=== PATIENT | female | born 1960 | race Caucasian/White ===

== ENCOUNTER 2018-07-20 18:14 | Inpatient (IN) | payer OTHER, MEDICAID ==
[2018-07-20] MEDS ORDERED: Albuterol Nebulizer 2.5mg/3mL HHN ONE (19:26)
[2018-07-20] MEDS ORDERED: Albuterol Nebulizer 2.5mg/3mL HHN STA (19:30)
[2018-07-20] MEDS ORDERED: Lactated Ringer 1,000 ML IV ONE ×2 (19:31→21:10)
[2018-07-20 20:04] LABS: % BASOPHILS 0.1 % (0.0-2.0); % EOSINOPHILS 0.1 % (0.0-5.0); % LYMPHOCYTES 11.4 % (20.0-50.0); % MONOCYTES 1.6 % (2.0-10.0); % NEUTROPHILS 86.8 % (40.0-80.0); HEMATOCRIT 40.6 % (41.0-60); HEMOGLOBIN 13.4 gm/dL (12-16); LYMPHOCYTE ABSOLUTE 1.6 Th/cmm (1.5-3.0); MEAN CELL VOLUME 97.3 fl (81-100); MEAN CORPUSCULAR HEMOGLOBIN 32.1 pg (27.0-31.0); MEAN PLATELET VOLUME 8.6 fl; MONOCYTE ABSOLUTE 0.2 Th/cmm (0.3-1.0); NEUTROPHILE ABSOLUTE 12.2 Th/cmm (1.8-8.0); PLATELET COUNT 161 Th/cmm (150-400); RED BLOOD COUNT 4.17 Mil/cmm (3.80-5.10); RED CELL DISTRIBUTION WIDTH 15.2 % (11.5-20.0)
[2018-07-20 20:20] LABS: ALB/GLOB RATIO 0.8 (1.0-1.8); ALBUMIN 3.2 gm/dL (3.7-5.3); ALKALINE PHOSPHATASE 69 U/L (34-104); ANION GAP 11.3 (7.0-16.0); BILIRUBIN,TOTAL 0.4 mg/dL (0.3-1.0); BUN - UREA NITROGEN 19 mg/dL (7-25); CALCIUM SERUM 9.1 mg/dL (8.6-10.3); CARBON DIOXIDE 28.4 mEq/L (21.0-31.0); CHLORIDE 99 mEq/L (98-107); GFR AFRICAN-AMERICAN > 60.0 ml/min (>90); GFR NON AFRICAN-AMERICAN > 60.0 ml/min; GLUCOSE 134 mg/dL (70-105); MAGNESIUM 2.1 mg/dL (1.9-2.7); PHOSPHOROUS 3.4 mg/dL (2.5-5.0); POTASSIUM SERUM 3.7 mEq/L (3.5-5.1); SGOT 20 U/L (13-39); SGPT/ALT 16 U/L (7-52); SODIUM SERUM 135 mEq/L (136-145); TOTAL PROTEIN,SERUM 7.3 gm/dL (6.0-8.3)
[2018-07-20] MEDS ORDERED: Piperacillin Sodium/Tazobact 3.375 gm Vial IV ONE (20:51)
--- NOTE | 2018-07-20 21:31 | ED Physician Chart ---
ED Chief Complaint/HPI - Patient Information Date Seen:: 07/20/18 Time Seen:: 18:53 Chief Complaint:: sob and congestion History of Present Illness:: sob and congestion in a patient with a h/o pneumonia and sepsis. Doesn't wear oxygen at the facility that she came from. Allergies:: Allergies Allergy/AdvReac Type Severity Reaction Status Date / Time erythromycin base Allergy Verified 07/20/18 18:52 Vitals:: Vital Signs - 8 hr 07/20/18 07/20/18 07/20/18 18:53 19:27 21:20 Temp 97.3 F HR 72 85 RR 16 24 23 BP 89/45 O2 Sat % 94 88 94 07/20/18 21:23 Temp HR RR BP O2 Sat % 99 Historian:: EMS, Medical Records Review:: Nurse's Note Reviewed, Transfer documents Reviewed ED Review of Systems - Review of Systems General/Constitutional: No fever, No chills, No weight loss, No weakness, No diaphoresis, No edema, No loss of appetite Skin: No skin lesions, No rash, No bruising Head: No headache, No light-headedness Eyes: No loss of vision, No pain, No diplopia ENT: No earache, No nasal drainage, No sore throat, No tinnitus Neck: No neck pain, No swelling, No thyromegaly, No stiffness, No mass noted Cardio Vascular: No chest pain, No palpitations, No PND, No orthopnea, No edema Pulmonary: SOB, No cough, No sputum, Other (congestion) GI: No nausea, No vomiting, No diarrhea, No pain, No melena, No hematochezia, No constipation, No hematemesis G/U: No dysuria, No frequency, No hematuria Musculoskeletal: No bone or joint pain, No back pain, No muscle pain Endocrine: No polyuria, No polydipsia Psychiatric: Prior psych history Hematopoietic: No bruising, No lymphadenopathy Allergic/Immuno: No urticaria, No angioedema Neurological: No syncope, No focal symptoms, No weakness, No paresthesia, No headache, No seizure, No dizziness, No confusion, No vertigo ED Past Medical History - Past Medical History Obtainable: No Past Medical History: Dementia, Other (sepsis; Down's syndrome; blind eyes) Surgical History: Pacemaker Psychiatricy History: Schizophrenia, Dementia Family Medical History - Family Member Mother History Unknown: Yes ED Physical Exam - Physical Examination General/Constitutional: Awake Other Gen/Cons comments:: chronically ill appearing. Down's syndrome facies. trying to pull face mask off of her face. Head: Atraumatic Eyes: Lids, conjuctiva normal, PERRL Other Skin comments:: appears mottled on the BLE. Duct Maker states that that is her normal skin color. ENMT: External ears, nose nl, TM canals nl Other ENMT comments:: low set ears. Neck: Nontender, Full ROM w/o pain, No JVD, No nuchal rigidity, No bruit, No mass, No stridor Other Respiratory comments:: decreased breath sounds at bases. Cardio Vascular: RRR Other Cardio Vascular comments:: II/ systolic murmur. GI: No tenderness/rebounding/guarding, No organomegaly, No hernia, Normal BS's, Nondistended, No mass/bruits, No McBurney tenderness : No CVA tenderness Extremities: No tenderness or effusion, Full ROM, normal strength in all extremities, No edema, Normal digits & nails Other Extremities comments:: appears to have mottled skin. hands are cold and a red/lavendar in color. Other Neuro/Psych comments:: slightly somnolent. Misc: Normal back, No paraspinal tenderness ED Labs/Radiology/EKG Results - Lab Results Results: Laboratory Tests 07/20/18 07/20/18 07/20/18 19:50 19:50 19:50 WBC 14.0 H RBC 4.17 Hgb 13.4 Hct 40.6 L MCV 97.3 MCH 32.1 H MCHC Differential 33.0 RDW 15.2 Plt Count 161 MPV 8.6 Neutrophils % 86.8 H Lymphocytes % 11.4 L Monocytes % 1.6 L Eosinophils % 0.1 Basophils % 0.1 Sodium 135 L Potassium 3.7 Chloride 99 Carbon Dioxide 28.4 Anion Gap 11.3 BUN 19 Creatinine 1.0 Est GFR ( Amer) > 60.0 Est GFR (Non-Af Amer) > 60.0 BUN/Creatinine Ratio 19.0 Glucose 134 H Whole Bld Lactic Acid Calcium 9.1 Phosphorus Magnesium Total Bilirubin 0.4 AST 20 ALT 16 Alkaline Phosphatase 69 Troponin I 0.01 Total Protein 7.3 Albumin 3.2 L Globulin 4.1 Albumin/Globulin Ratio 0.8 L 07/20/18 07/20/18 19:50 19:50 WBC RBC Hgb Hct MCV MCH MCHC Differential RDW Plt Count MPV Neutrophils % Lymphocytes % Monocytes % Eosinophils % Basophils % Sodium Potassium Chloride Carbon Dioxide Anion Gap BUN Creatinine Est GFR ( Amer) Est GFR (Non-Af Amer) BUN/Creatinine Ratio Glucose Whole Bld Lactic Acid 2.42 H* Calcium Phosphorus 3.4 Magnesium 2.1 Total Bilirubin AST ALT Alkaline Phosphatase Troponin I Total Protein Albumin Globulin Albumin/Globulin Ratio ED Assessment - Assessment General Assessment: spoke to Dr. Coronel of [facility] who gave me a [place] authorization number of [id number] for payment of treatment here at our facility. I gave report to Dr. Coronel who told me that she was going to call us back in a half hour because Dr. Coronel gave the above authorization number for us to admit and treat this patient to go to the ICU. Assessment/Comments:: ABG is a venous blood draw (I was at the bedside when it was drawn). pO2 was 45 on the venous blood draw. patient was placed on BIPAP after receiving Ativan 0.5 mg IV to sedate her enough to relax and not fight the BIPAP. After doing this, the BIPAP was very well tolerated with sats to 100% spoke with Berna who authorized this patient's admission to the ICU and for payment of the patient's care here at our facility as well as payment for the doctor second chef who is Dr. Herbert. worsening lactic acid of 2.81 up from 2.42 EKG from 7:35:13 p.m. reveals normal sinus rhythm with movement artifact. EKG from 7:36:27 p.m. reveals normal sinus rhythm with a flipped t in V1. SBP down to 69 to 74 after 2 liters of fluid. Will start Levophed. Tolerating BiPap fine with Fio2 of 50%, her sats are 100%. Levophed has brought the MAP from 48 to 61. CXR after PICC line shows that it is in the SVC. Now, after 2 liters of IV hydration, a RLL pneumonia is clearly seen. spoke with Dr. Mily Herbert at 12:20 a.m. He said that he will be here in 5 minutes. FIO2 was titrated down to 30% and patient is still saturating 98 to 100%. spoke with brother whose name is Johnathan Cabezas at . I informed him of her condition. Dr. Herbert is here reviewing her case at 12:42 a.m. ED Septic Shock - . Is Septic Shock (SBP<90, OR Lactate>4 mmol\L) present?: Yes - <6hrs of presentation: Vital Signs: Vital Signs - 8 hr 07/20/18 07/20/18 07/20/18 18:53 19:27 21:20 Temp 97.3 F HR 72 85 RR 16 24 23 BP 89/45 O2 Sat % 94 88 94 07/20/18 21:23 Temp HR RR BP O2 Sat % 99 Assessment of Lungs: Documented in PE Assessment of Heart: Documented in PE EKG Interpretation: Documented in Result Capillary refill evaluation: Capillary refill > 2 secs Skin Exam: Mottled, Cyanotic - Time of Reassessment Time of Reassessment: 00:42 ED Reassessment (Disposition) - Reassessment Reassessment Condition:: Improved - Diagnosis Diagnosis:: Septic shock with SBP less than 80 RLL Pneumonia Leukocytosis Elevated lactic acid Hypothyroidism Down's syndrome Hematuria from traumatic catheterization - Patient Disposition Discharge/Transfer:: Acute Care w/in this hosp Accepting Physician:: Dr. Mily Herbert Time Called:: 23:00 Time Responded:: 00:20 Admitted to:: ICU Condition at Disposition:: Stable, Improved
[2018-07-20 21:52] LABS: pH 7.42 (7.35-7.45)
[2018-07-20 21:53] LABS: ALLEN TEST Positive
[2018-07-20 22:37] LABS: URINE SOURCE CLEAN C
[2018-07-20 22:39] LABS: URINE BILIRUBIN NEGATIVE (NEGATIVE); URINE BLOOD LARGE (NEGATIVE); URINE GLUCOSE (UA) NEGATIVE (NEGATIVE); URINE KETONE NEGATIVE (NEGATIVE); URINE LEUKOCYTE ESTERASE NEGATIVE (NEGATIVE); URINE MICROSCOPIC INDICATED? YES; URINE NITRATE NEGATIVE (NEGATIVE); URINE PROTEIN NEGATIVE (NEGATIVE); URINE UROBILINOGEN 0.2 E.U./dL (0.2 - 1.0)
[2018-07-20] MEDS ORDERED: Sodium Chloride 0.9% 1,000 ML IV ONE ×2 (22:42→23:14)
[2018-07-20 22:45] LABS: URINE CLARITY HAZY (CLEAR); URINE COLOR YELLOW
[2018-07-20 22:46] LABS: URINE RBC 0-2 /hpf (0-5)
[2018-07-20 22:48] LABS: URINE BACTERIA FEW /hpf (NONE SEEN); URINE EPITHELIAL CELLS FEW /lpf (FEW)
[2018-07-20] MEDS ORDERED: Norepinephrine 4 mg/4mL Vial IV ONE (23:34)
[2018-07-21 00:45] LABS: PROTHROMBIN TIME (TEST) 10.4 SECONDS (9.5-11.5)
[2018-07-21 02:42] VITALS: BP 125/64
[2018-07-21] MEDS: Levofloxacin 500mg/100mL 500 MG/100 ML BAG IV SCH (02:47)
[2018-07-21] MEDS ORDERED: Sodium Chloride 0.9% 1,000 ML IV SCH (03:15)
--- NOTE | 2018-07-21 03:30 | History & Physical ---
ADMIT DATE: 07/21/2018 INFECTIOUS DISEASE CONSULTATION CHIEF COMPLAINT: Shortness of breath and congestion. HISTORY OF PRESENT ILLNESS: The patient is a 57-year-old female with past medical history of Down syndrome, dementia, schizophrenia, pacemaker placement, and blindness, brought in from nursing facility for shortness of breath and congestion. On initial evaluation, her temperature was 97.3 degrees Fahrenheit and blood pressure was 89/45. Even the blood pressure went down to 60s, so the patient was given 2 liter bolus normal saline and started on Levophed 5 mcg per minute. Besides this, she was receiving 250 mL per hour normal saline. The patient was diagnosed to have sepsis and septic shock. Chest x-ray showed right lower lobe pneumonia. The patient is severely demented and unable to give any history. Besides his urine also showed pyuria and mild bacteriuria. Zosyn IV was given in the ER. Sepsis workup was performed and lactic acid was on the higher side, it was 2.42. PAST MEDICAL HISTORY: Includes Down syndrome, severe dementia, developmental delay, hypothyroidism, ventricular septal defect, psychotic disorder, hyperlipidemia, sick sinus syndrome requiring pacemaker placement, CKD stage 3, atherosclerosis of aorta, severe intellectual disability, bilateral phthisis bulbi, insomnia, pericardial effusion, history of aspiration pneumonia. PAST SURGICAL HISTORY: Includes cholecystectomy, corneal transplant on 05/29/2006, and single chamber pacemaker placement. ALLERGIES: THE PATIENT HAS DOCUMENTED ALLERGIC TO ERYTHROMYCIN BASE CAUSING SKIN RASH AND/OR HIVES, SULFA ANTIBIOTICS WITH SKIN RASH AND/OR HIVES. IMMUNIZATION: The patient has taken influenza vaccine on 06/18/2018. MEDICATIONS: Include levothyroxine 100 mcg once a day, vitamin B12 2500 mcg sublingual 1 tablet a day, Seroquel 300 mg p.o. daily at bedtime, trazodone 100 mg orally daily at bedtime, Aricept 10 mg p.o. daily at nighttime, Tylenol 325 mg 2 tabs orally every 4-6 hourly for the pain and fever, lactase orally, and melatonin 2 tabs every night. SOCIAL HISTORY: The patient lives at a nursing facility. No history of smoking, alcohol or drug use. FAMILY HISTORY: Not available. REVIEW OF SYSTEMS: The patient is unable to give any history because of her mental status. So far, the patient has no fever. The patient had cough and congestion. PHYSICAL EXAMINATION: CURRENT VITAL SIGNS: Show temperature is 97.3 degrees Fahrenheit, pulse is 97, respirations 15, blood pressure 113/38. GENERAL: The patient is comfortable, lying in the bed, short stature. HEENT: Head is normocephalic, atraumatic. Oral cavity moist, pink tongue. Eyes: No pallor, no icterus. EOMI. NECK: Supple. NJVD, no carotid bruit. Trachea in midline. CHEST: Bilateral breath sounds. Some crackles on the right side. HEART: S1 and S2 within normal limits. Regular rhythm. No murmur, no gallop. ABDOMEN: Soft, nontender, nondistended. Bowel sounds present. EXTREMITIES: No cyanosis, no clubbing, no edema. The patient has some kind of mottling of the skin, but it is warm to touch. NEUROLOGIC: She moves all 4 extremities. Unable to communicate. LABORATORY AND DIAGNOSTIC DATA: Current lab shows WBC count is 14,000, hemoglobin 13.4, hematocrit 40.6, platelets are 161,000, neutrophils 87%. Sodium is 135, potassium 3.7, chloride 99, bicarbonate is 28.4, BUN is 19, creatinine is 1, and glucose is 134. Lactic acid was 2.42 and it went up to 2.81. LFTs are reviewed. TSH is 6.09. Urinalysis shows large blood with WBCs 10-25, RBC 0-2, and bacteria few. INR is 1.0 and D-dimer is 1510. Blood gas shows pH of 7.42, pCO2 48, pO2 45, and oxygen saturation 82%; however, the patient was saturating well on oxygen through normal cannula. Chest x-ray was reviewed and it showed right lower lobe infiltrate consistent with pneumonia. EKG showed sinus rhythm, left atrial enlargement, normal sinus rhythm with heart rate 96 beats per minute, no ST-T changes. IMPRESSION: 1. Hypotension, likely severe sepsis with septic shock with lactic acidosis. 2. Right lower lobe pneumonia. 3. Mild urinary tract infection. 4. Down syndrome. 5. Hypothyroidism. 6. Mental retardation, severe developmental delay. 7. Sick sinus syndrome, pacemaker placement. 8. Dementia. 9. Hematuria. 10. Schizophrenia. 11. Hyperlipidemia. 12. Ventricular septal defect. PLAN: We will decrease IV fluid to 125 mL per hour. Continue Levophed at this time. Antibiotic-faria, we will give vancomycin, Zosyn, and Levaquin. Sepsis workup was performed. Repeat lactic acid in the morning. Check procalcitonin level in the morning. Repeat blood gas in the morning. Continue home medications. Check sputum culture and MRSA screen. We will provide Protonix for peptic ulcer disease prophylaxis. We will provide DVT prophylaxis by heparin and SCD. Consultations are called, Dr. Roberto Herbert for Pulmonary and Critical Care and Dr. Dio Herbert for hypertension and sick sinus syndrome and pacemaker evaluation. ER physician has already spoken to the patient's brother, power of environmental attorney. The patient is a [facility] patient. As the patient gets stable, we will transfer the patient to [facility]. JOB# [id number]
[2018-07-21 04:20] LABS: HEMATOCRIT 36.3 % (41.0-60); HEMOGLOBIN 12.4 gm/dL (12-16); MEAN CELL VOLUME 96.6 fl (81-100); MEAN CORPUSCULAR HGB CONC 34.1 pg (28.0-36.0); MEAN PLATELET VOLUME 8.4 fl; PLATELET COUNT 154 Th/cmm (150-400); RED BLOOD COUNT 3.76 Mil/cmm (3.80-5.10); RED CELL DISTRIBUTION WIDTH 14.4 % (11.5-20.0)
[2018-07-21 05:17] LABS: WHITE BLOOD COUNT 16.5 Th/cmm (4.8-10.8)
[2018-07-21] MEDS ORDERED: Piperacillin Sodium/Tazobact 3.375 gm Vial IV ONE (05:43)
[2018-07-21] MEDS ORDERED: Dextrose 50% 50 mL Abboject IVP ONE ×2 (06:32→06:39)
[2018-07-21 06:42] LABS: BAND NEUTROPHILE 0 % (0-10); BASOPHIL 0 % (0-3); EOSINOPHIL 0 % (0-5); LYMPHOCYTE 5 % (20-50); MONOCYTE 3 % (2-10); NEUTROPHILS 92 % (40-80)
[2018-07-21] MEDS: INSULIN ASPART SLIDING SCALE 100 UNITS/ML UNIT SUBQ SCH ×4 (06:44→20:55)
[2018-07-21 08:23] LABS: BUN - UREA NITROGEN 13 mg/dL (7-25); CHLORIDE 106 mEq/L (98-107); CREATININE - SERUM 0.8 mg/dL (0.6-1.2); GFR AFRICAN-AMERICAN > 60.0 ml/min (>90); GFR NON AFRICAN-AMERICAN > 60.0 ml/min; GLUCOSE 132 mg/dL (70-105); POTASSIUM SERUM 3.9 mEq/L (3.5-5.1); SODIUM SERUM 136 mEq/L (136-145)
--- NOTE | 2018-07-21 08:44 | Diagnostic Imaging Report ---
CHEST X-RAY: AP view INDICATION: Shortness of breath COMPARISON: 07/30/2015 FINDINGS: The patient is markedly rotated limiting the examination. Chest wall pacemaker is noted with lead in the region right atrium. Right basal density is noted. Heart size cannot be well assessed on this exam. IMPRESSION: Limited exam due to patient positioning and body habitus. Pneumonia of the right lung base cannot be excluded. Repeat exam with better positioning is recommended when clinically feasible.
--- NOTE | 2018-07-21 08:47 | Diagnostic Imaging Report ---
CHEST X-RAY: AP view INDICATION: PICC line placement COMPARISON: 07/20/2018 FINDINGS: Left chest wall pacemaker is stable. New right PICC line has been place with tip in the SVC. Right lower lung zone infiltrate/pneumonia is noted. No significant effusion. Heart size is normal. IMPRESSION: New right PICC line with tip in the SVC. Multifocal right lower lung zone infiltrate/pneumonia.
[2018-07-21] MEDS: Levothyroxine 0.088 Mg Tab PO SCH (08:51)
[2018-07-21] MEDS ORDERED: LACTASE 3000 UNIT PO SCH (09:00)
[2018-07-21 09:26] LABS: pH 7.43 (7.35-7.45)
[2018-07-21 09:53] LABS: ANION GAP 13.7 (7.0-16.0); CARBON DIOXIDE 20.2 mEq/L (21.0-31.0)
--- NOTE | 2018-07-21 12:51 | Infectious Disease Prog Note ---
Infectious Disease Subjective - Review of Systems Service Date: 07/21/18 Subjective: Remains on the levophed and IV fluid. Blood pressure is better controlled. NO fever. Infectious Disease Objective - Results Result Diagrams: 07/21/18 04:10 07/21/18 04:10 Recent Labs: Laboratory Last Values WBC 16.5 Th/cmm (4.8-10.8) H 07/21/18 04:10 RBC 3.76 Mil/cmm (3.80-5.10) L 07/21/18 04:10 Hgb 12.4 gm/dL (12-16) 07/21/18 04:10 Hct 36.3 % (41.0-60) L 07/21/18 04:10 MCV 96.6 fl (81-100) 07/21/18 04:10 MCH 33.0 pg (27.0-31.0) H 07/21/18 04:10 MCHC Differential 34.1 pg (28.0-36.0) 07/21/18 04:10 RDW 14.4 % (11.5-20.0) 07/21/18 04:10 Plt Count 154 Th/cmm (150-400) 07/21/18 04:10 MPV 8.4 fl 07/21/18 04:10 Add Manual Diff YES 07/21/18 04:10 Neutrophils % 86.8 % (40.0-80.0) H 07/20/18 19:50 Band Neutrophils % 0 % (0-10) 07/21/18 04:10 Lymphocytes % 11.4 % (20.0-50.0) L 07/20/18 19:50 Monocytes % 1.6 % (2.0-10.0) L 07/20/18 19:50 Eosinophils % 0.1 % (0.0-5.0) 07/20/18 19:50 Basophils % 0.1 % (0.0-2.0) 07/20/18 19:50 Neutrophils (Manual) 92 % (40-80) H 07/21/18 04:10 Lymphocytes 5 % (20-50) L 07/21/18 04:10 Monocytes 3 % (2-10) 07/21/18 04:10 Eosinophils 0 % (0-5) 07/21/18 04:10 Basophils 0 % (0-3) 07/21/18 04:10 PT 10.4 SECONDS (9.5-11.5) 07/20/18 20:00 INR 1.00 (0.5-1.4) 07/20/18 20:00 PTT (Actin FS) 29.0 SECONDS (26.0-38.0) 07/20/18 20:00 D-Dimer 1510 ng/mL (100-400) H 07/20/18 20:00 Specimen Source Arterial 07/21/18 09:20 Sample Site LB 07/21/18 09:20 pH 7.43 (7.35-7.45) 07/21/18 09:20 pCO2 41.0 mmHg (35.0-45.0) 07/21/18 09:20 pO2 77.0 mmHg (80.0-100.0) L 07/21/18 09:20 HCO3 26.9 mEq/L (20.0-26.0) H 07/21/18 09:20 Base Excess 2.6 mEq/L (-3.0-3.0) 07/21/18 09:20 O2 Saturation 96.0 % (92.0-100.0) 07/21/18 09:20 Nikunj Test Positive 07/20/18 20:33 Vent Rate 14 07/21/18 09:20 Inspired O2 25 07/21/18 09:20 Tidal Volume N/A 07/20/18 20:33 PEEP N/A 07/20/18 20:33 Pressure (ins/psv/peep) N/A 07/20/18 20:33 Critical Value PW 07/21/18 09:20 Sodium 136 mEq/L (136-145) 07/21/18 04:10 Potassium 3.9 mEq/L (3.5-5.1) 07/21/18 04:10 Chloride 106 mEq/L (98-107) 07/21/18 04:10 Carbon Dioxide 20.2 mEq/L (21.0-31.0) L 07/21/18 04:10 Anion Gap 13.7 (7.0-16.0) 07/21/18 04:10 BUN 13 mg/dL (7-25) 07/21/18 04:10 Creatinine 0.8 mg/dL (0.6-1.2) 07/21/18 04:10 Est GFR ( Amer) > 60.0 ml/min (>90) 07/21/18 04:10 Est GFR (Non-Af Amer) > 60.0 ml/min 07/21/18 04:10 BUN/Creatinine Ratio 16.3 07/21/18 04:10 Glucose 132 mg/dL (70-105) H 07/21/18 04:10 POC Glucose 77 MG/DL (70 - 105) 07/21/18 11:24 Whole Bld Lactic Acid 1.58 mmol/L (0.60-1.99) 07/21/18 02:00 Calcium 8.0 mg/dL (8.6-10.3) L 07/21/18 04:10 Phosphorus 3.4 mg/dL (2.5-5.0) 07/20/18 19:50 Magnesium 2.1 mg/dL (1.9-2.7) 07/20/18 19:50 Total Bilirubin 0.4 mg/dL (0.3-1.0) 07/20/18 19:50 AST 20 U/L (13-39) 07/20/18 19:50 ALT 16 U/L (7-52) 07/20/18 19:50 Alkaline Phosphatase 69 U/L (34-104) 07/20/18 19:50 Troponin I 0.01 ng/mL (0.01-0.05) 07/20/18 19:50 Total Protein 7.3 gm/dL (6.0-8.3) 07/20/18 19:50 Albumin 3.2 gm/dL (3.7-5.3) L 07/20/18 19:50 Globulin 4.1 gm/dL 07/20/18 19:50 Albumin/Globulin Ratio 0.8 (1.0-1.8) L 07/20/18 19:50 TSH 6.09 uIU/ml (0.34-5.60) H 07/20/18 19:50 Urine Source CLEAN C 07/20/18 22:30 Urine Color YELLOW 07/20/18 22:30 Urine Clarity HAZY (CLEAR) 07/20/18 22:30 Urine pH 6.0 (4.6 - 8.0) 07/20/18 22:30 Ur Specific [place] 1.025 (1.005-1.030) 07/20/18 22:30 Urine Protein NEGATIVE mg/dL (NEGATIVE) 07/20/18 22:30 Urine Glucose (UA) NEGATIVE mg/dL (NEGATIVE) 07/20/18 22:30 Urine Ketones NEGATIVE mg/dL (NEGATIVE) 07/20/18 22:30 Urine Blood LARGE (NEGATIVE) H 07/20/18 22:30 Urine Nitrate NEGATIVE (NEGATIVE) 07/20/18 22:30 Urine Bilirubin NEGATIVE (NEGATIVE) 07/20/18 22:30 Urine Urobilinogen 0.2 E.U./dL (0.2 - 1.0) 07/20/18 22:30 Ur Leukocyte Esterase NEGATIVE (NEGATIVE) 07/20/18 22:30 Urine RBC 0-2 /hpf (0-5) 07/20/18 22:30 Urine WBC 10-25 /hpf (0-5) H 07/20/18 22:30 Ur Epithelial Cells FEW /lpf (FEW) 07/20/18 22:30 Urine Bacteria FEW /hpf (NONE SEEN) 07/20/18 22:30 - Physical Exam Vitals and I&O: Vital Signs Temp 97.2 F 07/21/18 08:00 Pulse 92 07/21/18 10:45 Resp 14 07/21/18 11:05 BP 101/66 07/21/18 10:45 Pulse Ox 96 07/21/18 11:05 Intake & Output 07/20/18 07/21/18 07/21/18 18:59 06:59 18:59 Intake Total 3602.153 176.847 Balance 3602.153 176.847 Weight (lbs) 38.102 kg 46.402 kg Intake: Intake, IV Amount 3602.153 176.847 Lactated Ringer 1,000 ml 1000 @ 999 mls/hr IV .Q1H1M [facility] Rx#:[id number] Levofloxacin 500mg/100mL 100 500 mg In 100 ml @ 100 mls/hr IV Q24HR [facility] Rx#: [id number] Norepinephrine 4 mg In 77.153 176.847 Dextrose 5% 250 ml @ 5 MCG/MIN 19.05 mls/hr IV TITR PRN Rx#:[id number] Piperacillin Sodium/ 50 Tazobact 3.375 gm In Sodium Chloride 0.9% 50 ml @ 100 mls/hr IV Q6HR [facility] Rx#:[id number] Piperacillin Sodium/ 50 Tazobact 3.375 gm In Sodium Chloride 0.9% 50 ml @ 100 mls/hr IV X1 [facility] Rx#:[id number] Sodium Chloride 0.9% 1, 325 000 ml @ 125 mls/hr IV . Q8H [facility] Rx#:[id number] Sodium Chloride 0.9% 1, 1000 000 ml @ 250 mls/hr IV . Q4H [facility] Rx#:[id number] Sodium Chloride 0.9% 1, 1000 000 ml @ 999 mls/hr IV . Q1H1M [facility] Rx#:[id number] Other: # Voids 3 Weight Source Standing scale Bedscale Active Medications: Current Medications Donepezil HCl (Aricept) 10 mg PO HS [facility] Stop: 09/19/18 20:59 Heparin Sodium (Porcine) (Heparin) 5,000 units SUBQ Q12HR [facility] Stop: 09/19/18 08:59 Last Admin: 07/21/18 08:50 Dose: 5,000 units Norepinephrine Bitartrate 4 mg (/ Dextrose) 254 mls @ 19.05 mls/hr IV TITR PRN ; Protocol PRN Reason: BP MAINTENANCE (PER PROTOCOL) Stop: 09/18/18 23:37 Last Admin: 07/21/18 10:20 Dose: 3 mcg/min, 11.43 mls/hr Piperacillin Sod/Tazobactam (Sod 3.375 gm/ Sodium Chloride) 50 mls @ 100 mls/ hr IV Q6HR [facility] Stop: 09/19/18 05:59 Last Admin: 07/21/18 11:21 Dose: 100 mls/hr Levofloxacin (Levaquin Pb) 500 mg in 100 mls @ 100 mls/hr IV Q24HR [facility] Stop: 09/19/18 02:29 Last Infusion: 07/21/18 03:47 Dose: Infused Sodium Chloride (Nacl 0.9%) 1,000 mls @ 125 mls/hr IV .Q8H [facility] Stop: 09/19/18 03:14 Last Infusion: 07/21/18 06:00 Dose: 125 mls/hr Vancomycin HCl 750 mg/ Sodium (Chloride) 250 mls @ 250 mls/hr IV Q24H [facility] Stop: 09/19/18 08:59 Last Admin: 07/21/18 08:49 Dose: 250 mls/hr Insulin Aspart (Novolog Insulin Sliding Scale) 0 units SUBQ ACHS [facility]; Protocol Stop: 09/19/18 07:29 Last Admin: 07/21/18 11:26 Dose: Not Given Levothyroxine Sodium (Synthroid) 0.088 mg PO DAILY [facility] Stop: 09/19/18 08:59 Last Admin: 07/21/18 08:51 Dose: Not Given Loperamide HCl (Imodium) 4 mg PO DAILY PRN PRN Reason: Diarrhea Lorazepam (Ativan) 1 mg IVP Q4HR PRN; Protocol PRN Reason: Agitation Stop: 09/19/18 02:33 Last Admin: 07/21/18 06:21 Dose: 1 mg Miscellaneous (Vancomycin Iv Per Pharmacy) 1 ea [facility] PRN [facility] Stop: 09/19/18 02:29 Pantoprazole Sodium (Protonix) 40 mg IVP DAILY [facility] Stop: 09/19/18 08:59 Last Admin: 07/21/18 08:49 Dose: 40 mg Quetiapine Fumarate (Seroquel) 300 mg PO HS [facility]; Protocol Stop: 09/19/18 20:59 Risperidone (Risperdal) 0.5 mg PO HS [facility]; Protocol Stop: 09/19/18 20:59 Trazodone HCl (Desyrel) 100 mg PO HS [facility] Stop: 09/19/18 20:59 General: no acute distress, other (short stature.) HEENT: atraumatic, normocephalic, PERRLA, EOMI Neck: supple, no thyromegaly Cardiovascular: S1S2, regular Lungs: clear to auscultation bilaterally, clear to percussion Abdomen: soft, no tender, no distended, no mass, no rebound Extremities: no cyanosis, no clubbing, no edema Neurological: awake Skin: intact Infectious Disease Assmt/Plan - Assessment Assessment: 1. Hypotension, likely severe sepsis with septic shock with lactic acidosis. Lactic acidosis has improved. 2. Right lower lobe pneumonia. 3. Mild urinary tract infection. 4. Down syndrome. 5. Hypothyroidism. 6. Mental retardation, severe developmental delay. 7. Sick sinus syndrome, pacemaker placement. 8. Dementia. 9. Hematuria. 10. Schizophrenia. 11. Hyperlipidemia. 12. Ventricular septal defect. - Plan Plan: Continue vanco IV, Zosyn and levaquin. Check CPK. Renal us ( for hematuria). If patient gets stable in next one or two days, and gets off Levophed, will transfer her to [facility]. HCARLENE MEYER.
[2018-07-21] MEDS ORDERED: Sodium Chloride 0.9% 500 ML IV SCH (13:00)
[2018-07-21] MEDS: D5-0.9%NS 1,000 ML IV SCH ×2 (13:30→21:31)
[2018-07-21] MEDS: methylPREDNISolone SS 40 mg Vial IV SCH ×2 (15:20→20:43)
[2018-07-21] MEDS ORDERED: Sodium Chloride 0.9% 500 ML IV ONE ×3 (15:29→17:07)
[2018-07-21] MEDS: Albuterol/Ipratropium Neb 3 ML AERS HHN SCH ×2 (15:50→19:06)
--- NOTE | 2018-07-21 16:15 | Consultation ---
DATE OF CONSULTATION: 07/21/2018 PULMONARY/CRITICAL CARE CONSULTATION REASON FOR CONSULTATION: Acute respiratory failure. HISTORY OF PRESENT ILLNESS: This is a 57-year-old female with significant mental and physical developmental delay issues with history of pacemaker, blindness, was brought from a local convalescent home with chest congestion and now subsequently the patient was quite hypotensive and also blood pressure down to 60s and continue to have shortness of breath. After fluid challenge, etc, the patient continued to have problem. Subsequently, the patient was intubated. The patient was put on a BiPAP with fluid challenge and I was asked to see this patient for further care and necessary treatment. The patient is restless, no distress. Currently on a BiPAP, etc. Meaningful detailed history from the patient is not available. PAST MEDICAL HISTORY: History of Down syndrome, history of hypothyroidism, ventricular septal defect, psychomotor disorder, dyslipoproteinemia, blindness, severe intellectual disability as well as bilateral phthisis bulbi including history of previous pericardial effusion, including previous history of aspiration. PAST SURGICAL HISTORY: Includes cholecystectomy as well as a cornea transplant. ALLERGIES: ALLERGIC TO POSSIBLY ERYTHROMYCIN, SULFA, but otherwise unremarkable. Other history is very minimal. CURRENT MEDICATIONS: ____ Synthroid, vitamin B12 as well as Seroquel, trazodone as well as taking Tylenol p.r.n. for fever including lactulose for constipation and melatonin. Other history is very sketchy at this particular time. PHYSICAL EXAMINATION: GENERAL: This is a short statured female, does not respond appropriately to any verbal stimuli. Moving head side to side and is currently on BiPAP. VITAL SIGNS: The patient's recorded vitals: Temperature is 97.3, pulse is 97, saturation is almost 90%-100 on 30% of BiPAP and the patient is afebrile. HEENT: Head is essentially unremarkable. Pupils could not be seen ____ and it is very difficult to examine eye. Oral cavity is seemingly edentulous, though limited exam. NECK: No nuchal rigidity. Good bilateral carotid upstroke. CHEST: Shows scattered rhonchi with generalized diminished air entry. HEART: Regular. ABDOMEN: Soft, nontender. EXTREMITIES: Show some atrophic changes, otherwise unremarkable. PERTINENT LABORATORY STUDIES: Chest x-ray shows a pacemaker device in the left side, smaller size heart. Extensive infiltrate on the right lower half on the right chest cavity, questionable early on the left side as well and the patient's pertinent laboratory studies, white count is 16,000, hemoglobin 12.4 and ABG, pO2 of 77 on 25% of oxygen. Electrolytes are okay with borderline hyperglycemia and troponin is in acceptable range. Urine shows large blood, but otherwise some epithelial cells and WBC cells. No documentation of any ____ on microscopic exam. IMPRESSION: 1. The patient has acute respiratory failure, underlying most likely cause is aspiration. 2. Underlying physically, mentally delay with high risk of aspiration. 3. History of multiple other issues including cardiac arrhythmia, pacemaker, hypothyroidism, underlying history of psychosis, etc. PLANS AND SUGGESTIONS: We will continue antibiotic per Infectious Disease. We will give aggressive respiratory care, inhalation treatment, and repeat chest x-ray, etc. and we will try to give her a break from BiPAP to see how she does without it and we will be glad to follow along with you. JOB# [id number]
--- NOTE | 2018-07-21 17:52 | Consultation ---
DATE OF CONSULTATION: 07/21/[address] Rosalio Herbert. HISTORY OF PRESENT ILLNESS: This is a 57-year-old female patient with Down syndrome, came to the Emergency Room complaining of shortness of breath. The patient at the present time is hypotensive, on Levophed and hence, cardiac consult is requested. PAST MEDICAL HISTORY: The patient has right lower lobe pneumonia, hypotension, sick sinus syndrome with pacemaker, dementia, schizophrenia, Down syndrome, osteoporosis, blindness, urinary tract infection, hypothyroid, ventriculoseptal defect pericardial effusion disease, CKD stage III, and corneal transplant. FAMILY HISTORY: Unremarkable. SOCIAL HISTORY: No history of smoking, alcohol abuse. ALLERGIES: No known allergies. PHYSICAL EXAMINATION: VITAL SIGNS: Blood pressure 90 systolic, on Levophed; pulse 98; respiration on BiPAP. HEAD: Normocephalic. No lumps or bumps. EYES: Pupils equal, reactive to light. Fundi show AV nicking, sclerae white, conjunctivae pink. NECK: Carotid 2+. Normal upstroke. JVD flat. Thyroid not palpable. Lymph nodes not palpable. CHEST: Shows increased AP diameter. No kyphosis, scoliosis. LUNGS: Bilateral bronchovesicular breath sounds. Bilateral rales. Decreased breath sounds both the bases. HEART: PMI sixth intercostal space with lateral to midclavicular line. S1, S2, S3, S4, soft systolic murmur. ABDOMEN: Soft. Liver, spleen not palpable. No organomegaly. Bowel sounds active. NEUROLOGIC: The patient has Down syndrome. EXTREMITIES: Peripheral pulses 1+. No pedal edema. CLINICAL IMPRESSION: Acute respiratory failure, on BiPAP; right lower lobe pneumonia, most likely aspiration; hypotension, on Levophed; sick sinus syndrome with pacemaker; dementia; schizophrenia; Down syndrome; osteoporosis; urinary tract infection; hypothyroid; ventriculoseptal defect; pericardial effusion; chronic kidney disease, stage III; corneal transplant; sick sinus syndrome with pacemaker. PLAN: At the present time, we will continue present care and monitor the patient, IV antibiotics. Control heart rate. JOB# [id number]
[2018-07-21] MEDS: Budesonide 0.5 Mg/2 mL Ud HHN SCH (19:06)
[2018-07-21] MEDS ORDERED: Albumin 25% 25gm/100mL 50 GM/200 ML BTL IV ONE (20:00)
[2018-07-22] MEDS: Levofloxacin 500mg/100mL 500 MG/100 ML BAG IV SCH (02:01)
[2018-07-22] MEDS: methylPREDNISolone SS 40 mg Vial IV SCH (04:56)
[2018-07-22] MEDS: D5-0.9%NS 1,000 ML IV SCH (05:26)
[2018-07-22] MEDS: INSULIN ASPART SLIDING SCALE 100 UNITS/ML UNIT SUBQ SCH ×2 (06:53→12:04)
[2018-07-22] MEDS: Albuterol/Ipratropium Neb 3 ML AERS HHN SCH ×2 (06:56→11:56)
[2018-07-22] MEDS: Budesonide 0.5 Mg/2 mL Ud HHN SCH (06:56)
--- NOTE | 2018-07-22 07:54 | Diagnostic Imaging Report ---
Portable chest x-ray HISTORY: Pneumonia, shortness of breath Compared with prior exam of July 21, 2018, persistent yet decreased infiltrate within the right lower lobe. The heart remains enlarged. IMPRESSION: 1. Persistent, yet decreased infiltrate right lower lobe
[2018-07-22 07:59] LABS: % EOSINOPHILS 0.1 % (0.0-5.0); % LYMPHOCYTES 9.6 % (20.0-50.0); % MONOCYTES 2.1 % (2.0-10.0); % NEUTROPHILS 88.2 % (40.0-80.0); HEMATOCRIT 36.2 % (41.0-60); HEMOGLOBIN 12.2 gm/dL (12-16); LYMPHOCYTE ABSOLUTE 0.9 Th/cmm (1.5-3.0); MEAN CORPUSCULAR HEMOGLOBIN 32.8 pg (27.0-31.0); MEAN CORPUSCULAR HGB CONC 33.8 pg (28.0-36.0); MEAN PLATELET VOLUME 8.6 fl; MONOCYTE ABSOLUTE 0.2 Th/cmm (0.3-1.0); NEUTROPHILE ABSOLUTE 8.7 Th/cmm (1.8-8.0); PLATELET COUNT 130 Th/cmm (150-400); RED BLOOD COUNT 3.73 Mil/cmm (3.80-5.10); RED CELL DISTRIBUTION WIDTH 14.4 % (11.5-20.0); WHITE BLOOD COUNT 9.8 Th/cmm (4.8-10.8)
[2018-07-22 08:18] LABS: ALB/GLOB RATIO 1.1 (1.0-1.8); ALBUMIN 3.5 gm/dL (3.7-5.3); ALKALINE PHOSPHATASE 48 U/L (34-104); ANION GAP 11.9 (7.0-16.0); BILIRUBIN,DIRECT 0.28 mg/dL (0.0-0.2); BILIRUBIN,TOTAL 0.7 mg/dL (0.3-1.0); BUN - UREA NITROGEN 8 mg/dL (7-25); CARBON DIOXIDE 24.9 mEq/L (21.0-31.0); CHLORIDE 105 mEq/L (98-107); CREATININE - SERUM 0.8 mg/dL (0.6-1.2); GFR AFRICAN-AMERICAN > 60.0 ml/min (>90); GFR NON AFRICAN-AMERICAN > 60.0 ml/min; GLUCOSE 178 mg/dL (70-105); SGOT 14 U/L (13-39); SGPT/ALT 9 U/L (7-52); SODIUM SERUM 139 mEq/L (136-145); TOTAL PROTEIN,SERUM 6.6 gm/dL (6.0-8.3)
[2018-07-22 08:21] LABS: POTASSIUM SERUM 2.8 mEq/L (3.5-5.1)
[2018-07-22] MEDS: Levothyroxine 0.088 Mg Tab PO SCH (08:43)
--- NOTE | 2018-07-22 08:59 | Infectious Disease Prog Note ---
Infectious Disease Subjective - Review of Systems Service Date: 07/22/18 Subjective: Off levophed and on IV fluid. Blood pressure is better controlled. NO fever. Yesterday, Fluid boluses and albumin was given. Infectious Disease Objective - Results Result Diagrams: 07/22/18 07:40 07/22/18 07:40 Recent Labs: Laboratory Last Values WBC 9.8 Th/cmm (4.8-10.8) 07/22/18 07:40 RBC 3.73 Mil/cmm (3.80-5.10) L 07/22/18 07:40 Hgb 12.2 gm/dL (12-16) 07/22/18 07:40 Hct 36.2 % (41.0-60) L 07/22/18 07:40 MCV 97.0 fl (81-100) 07/22/18 07:40 MCH 32.8 pg (27.0-31.0) H 07/22/18 07:40 MCHC Differential 33.8 pg (28.0-36.0) 07/22/18 07:40 RDW 14.4 % (11.5-20.0) 07/22/18 07:40 Plt Count 130 Th/cmm (150-400) L 07/22/18 07:40 MPV 8.6 fl 07/22/18 07:40 Add Manual Diff YES 07/21/18 04:10 Neutrophils % 88.2 % (40.0-80.0) H 07/22/18 07:40 Band Neutrophils % 0 % (0-10) 07/21/18 04:10 Lymphocytes % 9.6 % (20.0-50.0) L 07/22/18 07:40 Monocytes % 2.1 % (2.0-10.0) 07/22/18 07:40 Eosinophils % 0.1 % (0.0-5.0) 07/22/18 07:40 Basophils % 0.0 % (0.0-2.0) 07/22/18 07:40 Neutrophils (Manual) 92 % (40-80) H 07/21/18 04:10 Lymphocytes 5 % (20-50) L 07/21/18 04:10 Monocytes 3 % (2-10) 07/21/18 04:10 Eosinophils 0 % (0-5) 07/21/18 04:10 Basophils 0 % (0-3) 07/21/18 04:10 PT 10.4 SECONDS (9.5-11.5) 07/20/18 20:00 INR 1.00 (0.5-1.4) 07/20/18 20:00 PTT (Actin FS) 29.0 SECONDS (26.0-38.0) 07/20/18 20:00 D-Dimer 1510 ng/mL (100-400) H 07/20/18 20:00 Specimen Source Arterial 07/21/18 09:20 Sample Site LB 07/21/18 09:20 pH 7.43 (7.35-7.45) 07/21/18 09:20 pCO2 41.0 mmHg (35.0-45.0) 07/21/18 09:20 pO2 77.0 mmHg (80.0-100.0) L 07/21/18 09:20 HCO3 26.9 mEq/L (20.0-26.0) H 07/21/18 09:20 Base Excess 2.6 mEq/L (-3.0-3.0) 07/21/18 09:20 O2 Saturation 96.0 % (92.0-100.0) 07/21/18 09:20 Nikunj Test Positive 07/20/18 20:33 Vent Rate 14 07/21/18 09:20 Inspired O2 25 07/21/18 09:20 Tidal Volume N/A 07/20/18 20:33 PEEP N/A 07/20/18 20:33 Pressure (ins/psv/peep) N/A 07/20/18 20:33 Critical Value PW 07/21/18 09:20 Sodium 139 mEq/L (136-145) 07/22/18 07:40 Potassium 2.8 mEq/L (3.5-5.1) L* D 07/22/18 07:40 Chloride 105 mEq/L (98-107) 07/22/18 07:40 Carbon Dioxide 24.9 mEq/L (21.0-31.0) 07/22/18 07:40 Anion Gap 11.9 (7.0-16.0) 07/22/18 07:40 BUN 8 mg/dL (7-25) 07/22/18 07:40 Creatinine 0.8 mg/dL (0.6-1.2) 07/22/18 07:40 Est GFR ( Amer) > 60.0 ml/min (>90) 07/22/18 07:40 Est GFR (Non-Af Amer) > 60.0 ml/min 07/22/18 07:40 BUN/Creatinine Ratio 10.0 07/22/18 07:40 Glucose 178 mg/dL (70-105) H 07/22/18 07:40 POC Glucose 127 MG/DL (70 - 105) H 07/22/18 06:37 Whole Bld Lactic Acid 1.58 mmol/L (0.60-1.99) 07/21/18 02:00 Calcium 9.0 mg/dL (8.6-10.3) 07/22/18 07:40 Phosphorus 3.4 mg/dL (2.5-5.0) 07/20/18 19:50 Magnesium 2.1 mg/dL (1.9-2.7) 07/20/18 19:50 Total Bilirubin 0.7 mg/dL (0.3-1.0) 07/22/18 07:40 Direct Bilirubin 0.28 mg/dL (0.0-0.2) H 07/22/18 07:40 AST 14 U/L (13-39) 07/22/18 07:40 ALT 9 U/L (7-52) 07/22/18 07:40 Alkaline Phosphatase 48 U/L (34-104) 07/22/18 07:40 Ammonia 39 umol/L (16-53) 07/22/18 07:40 Creatine Kinase 27 U/L (30-223) L 07/21/18 04:10 Troponin I 0.01 ng/mL (0.01-0.05) 07/20/18 19:50 B-Natriuretic Peptide 627.0 pg/mL (5.0-100.0) H 07/22/18 07:40 Total Protein 6.6 gm/dL (6.0-8.3) 07/22/18 07:40 Albumin 3.5 gm/dL (3.7-5.3) L 07/22/18 07:40 Globulin 3.1 gm/dL 07/22/18 07:40 Albumin/Globulin Ratio 1.1 (1.0-1.8) 07/22/18 07:40 TSH 6.09 uIU/ml (0.34-5.60) H 07/20/18 19:50 Urine Source CLEAN C 07/20/18 22:30 Urine Color YELLOW 07/20/18 22:30 Urine Clarity HAZY (CLEAR) 07/20/18 22:30 Urine pH 6.0 (4.6 - 8.0) 07/20/18 22:30 Ur Specific [place] 1.025 (1.005-1.030) 07/20/18 22:30 Urine Protein NEGATIVE mg/dL (NEGATIVE) 07/20/18 22:30 Urine Glucose (UA) NEGATIVE mg/dL (NEGATIVE) 07/20/18 22:30 Urine Ketones NEGATIVE mg/dL (NEGATIVE) 07/20/18 22:30 Urine Blood LARGE (NEGATIVE) H 07/20/18 22:30 Urine Nitrate NEGATIVE (NEGATIVE) 07/20/18 22:30 Urine Bilirubin NEGATIVE (NEGATIVE) 07/20/18 22:30 Urine Urobilinogen 0.2 E.U./dL (0.2 - 1.0) 07/20/18 22:30 Ur Leukocyte Esterase NEGATIVE (NEGATIVE) 07/20/18 22:30 Urine RBC 0-2 /hpf (0-5) 07/20/18 22:30 Urine WBC 10-25 /hpf (0-5) H 07/20/18 22:30 Ur Epithelial Cells FEW /lpf (FEW) 07/20/18 22:30 Urine Bacteria FEW /hpf (NONE SEEN) 07/20/18 22:30 Vancomycin Trough 6.0 ug/mL (5-10) 07/22/18 07:40 - Physical Exam Vitals and I&O: Vital Signs Temp 97.2 F 07/22/18 04:00 Pulse 79 07/22/18 07:14 Resp 20 07/22/18 07:14 BP 130/71 07/22/18 06:42 Pulse Ox 96 07/22/18 07:14 Intake & Output 07/21/18 07/22/18 07/22/18 18:59 06:59 18:59 Intake Total 137.925 4224.034 Balance 818.574 7527.034 Weight (lbs) 46.266 kg 46.266 kg Intake: Intake, IV Amount 332.608 9801.034 D5-0.9%Ns 1,000 ml @ 125 2060.416 mls/hr IV .Q8H [facility] Rx#: [id number] Levofloxacin 500mg/100mL 100 500 mg In 100 ml @ 100 mls/hr IV Q24HR [facility] Rx#: [id number] Norepinephrine 4 mg In 176.847 249.618 Dextrose 5% 250 ml @ 5 MCG/MIN 19.05 mls/hr IV TITR PRN Rx#:[id number] Piperacillin Sodium/ 100 100 Tazobact 3.375 gm In Sodium Chloride 0.9% 50 ml @ 100 mls/hr IV Q6HR [facility] Rx#:[id number] Vancomycin HCl 750 mg In 250 Sodium Chloride 0.9% 250 ml @ 250 mls/hr IV Q24H [facility] Rx#:[id number] Other: # Voids 6 5 # Bowel Movements 3 Weight Source Bedscale Bedscale Active Medications: Current Medications Albuterol/Ipratropium (Duoneb Neb) 3 ml HHN [id number] [facility] Stop: 09/19/18 14:59 Last Admin: 07/22/18 06:56 Dose: 3 ml Budesonide (Pulmicort) 0.5 mg HHN BIDRT [facility] Stop: 09/19/18 18:59 Last Admin: 07/22/18 06:56 Dose: 0.5 mg Donepezil HCl (Aricept) 10 mg PO HS [facility] Stop: 09/19/18 20:59 Last Admin: 07/21/18 20:55 Dose: Not Given Heparin Sodium (Porcine) (Heparin) 5,000 units SUBQ Q12HR [facility] Stop: 09/19/18 08:59 Last Admin: 07/22/18 08:43 Dose: 5,000 units Norepinephrine Bitartrate 4 mg (/ Dextrose) 254 mls @ 19.05 mls/hr IV TITR PRN ; Protocol PRN Reason: BP MAINTENANCE (PER PROTOCOL) Stop: 09/18/18 23:37 Last Titration: 07/22/18 05:00 Dose: 0 mcg/min, 0 mls/hr Piperacillin Sod/Tazobactam (Sod 3.375 gm/ Sodium Chloride) 50 mls @ 100 mls/ hr IV Q6HR [facility] Stop: 09/19/18 05:59 Last Infusion: 07/22/18 05:59 Dose: Infused Levofloxacin (Levaquin Pb) 500 mg in 100 mls @ 100 mls/hr IV Q24HR [facility] Stop: 09/19/18 02:29 Last Infusion: 07/22/18 03:01 Dose: Infused Vancomycin HCl 750 mg/ Sodium (Chloride) 250 mls @ 250 mls/hr IV Q24H [facility] Stop: 09/19/18 08:59 Last Infusion: 07/21/18 09:49 Dose: Infused Sodium Chloride (Nacl 0.9%) 500 mls @ 0 mls/hr IV .Q0M [facility] Stop: 09/19/18 12:59 Dextrose/Sodium Chloride (D5-0.9%Ns) 1,000 mls @ 125 mls/hr IV .Q8H [facility] Stop: 09/19/18 12:59 Last Infusion: 07/22/18 06:00 Dose: 125 mls/hr Insulin Aspart (Novolog Insulin Sliding Scale) 0 units SUBQ ACHS [facility]; Protocol Stop: 09/19/18 07:29 Last Admin: 07/22/18 06:53 Dose: Not Given Levothyroxine Sodium (Synthroid) 0.088 mg PO DAILY [facility] Stop: 09/19/18 08:59 Last Admin: 07/22/18 08:43 Dose: 0.088 mg Loperamide HCl (Imodium) 4 mg PO DAILY PRN PRN Reason: Diarrhea Lorazepam (Ativan) 1 mg IVP Q4HR PRN; Protocol PRN Reason: Agitation Stop: 09/19/18 02:33 Last Admin: 07/22/18 03:14 Dose: 1 mg Methylprednisolone Sodium Succinate (Solu-Medrol) 40 mg IV Q8HR [facility] Stop: 07/24/18 05:01 Last Admin: 07/22/18 04:56 Dose: 40 mg Miscellaneous (Vancomycin Iv Per Pharmacy) 1 ea MC PRN [facility] Stop: 09/19/18 02:29 Pantoprazole Sodium (Protonix) 40 mg IVP DAILY [facility] Stop: 09/19/18 08:59 Last Admin: 07/22/18 08:44 Dose: 40 mg Quetiapine Fumarate (Seroquel) 300 mg PO HS [facility]; Protocol Stop: 09/19/18 20:59 Last Admin: 07/21/18 20:55 Dose: Not Given Risperidone (Risperdal) 0.5 mg PO HS [facility]; Protocol Stop: 09/19/18 20:59 Trazodone HCl (Desyrel) 100 mg PO HS [facility] Stop: 09/19/18 20:59 General: no acute distress HEENT: atraumatic, normocephalic, PERRLA, EOMI Neck: supple, no thyromegaly Cardiovascular: S1S2, regular Lungs: clear to auscultation bilaterally, clear to percussion Abdomen: soft, no tender, no distended, no mass, no rebound, no hepatomegaly, no splenomegaly, no ascites, no guarding, no drain, no bowel sounds, no obese, no catheter Extremities: no cyanosis, no clubbing, no edema Neurological: awake Skin: intact Infectious Disease Assmt/Plan - Assessment Assessment: 1. Hypotension, likely severe sepsis with septic shock with lactic acidosis. Lactic acidosis has improved. hypotension is improving. 2. Staphylococcal sepsis. 3. Right lower lobe pneumonia. 4. Mild urinary tract infection. 5. Hypothyroidism. 6. Mental retardation, severe developmental delay. 7. Sick sinus syndrome, pacemaker placement. 8. Dementia. 9. Down syndrome. 10. Schizophrenia. 11. Hyperlipidemia. 12. Ventricular septal defect. 13. Hypokalemia. 14. Hematuria. - Plan Plan: Continue vanco IV, Zosyn and levaquin. K supplementation. Renal us ( for hematuria) can be done at [place]. [place] patient to [place] with [facility] protocol. Nutritional Asmnt/Malnutr-PDOC - Dietary Evaluation Malnutrition Findings (Please click <Entered> for more info): Nutritional Asmnt/Malnutrition Start: 07/21/18 15: 13 Text: Status: Complete Freq: Protocol: Document 07/21/18 15:13 LCHENG (Rec: 07/21/18 16:04 LCHENG [email or web address]) Nutritional Asmnt/Malnutrition Patient General Information Nutritional Screening High Risk Diagnosis PNA, septic shock Pertinent Medical Hx/Surgical Hx dementia, sepsis, down's syndrome, blind eyes, pacemaker, schizophrenia Subjective Information Pt seen resting in bed at time of visit, on bipap. Spoke with RN, pt was drowsy and did not have breakfast d/t on bipap. Will try to take off bipap and feed patient later. Current Diet Order/ Nutrition Support regular Pertinent Medications D5-0.9%ns, novolog, levaquin, synthroid, protonix, piperacillin, seroquel, nacl 0 .9%, vancomycin, levophod Pertinent Labs 07/21 glucose 132, POC 68-132 07/20 Na 135, glucose 134 Nutritional Hx/Data Height 1.37 m Height (Calculated Centimeters) 137.2 Current Weight (lbs) 46.266 kg Weight (Calculated Kilograms) 46.3 Weight (Calculated Grams) 42163.4 [place] Body Weight 88 Body Mass Index (BMI) 24.5 Weight Status Approriate GI Symptoms GI Symptoms None Last BM not indicated Difficult in: None Skin Integrity/Comment: reddened to left and right foot yesenia 12 Current %PO Negligible < 25% Estimated Nutritional Goals BEE in Kcals: Using Current wt Calories/Kcals/Kg 30-35 Kcals Calculated 4298-8530 Protein: Using Current wt Protein g/k.2-1.4 Protein Calculated 55-64 Fluid: ml 1380-1610ml (1ml/kcal) Nutritional Problem 2. Problem Problem inadequate food intake Etiology pt lethargic and on bipap Signs/Symptoms: PO intake < 25% 1. Problem Problem increased nutrition needs Etiology increased metabolic demand Signs/Symptoms: dx of septic shock, PNA Malnutrition Alert Is there a minimum of two criteria No selected? Query Text:Check all the applicable criteria. A minimum of two criteria are recommended for diagnosis of either severe or non-severe malnutrition. Malnutrition Related to Morbid Obesity Malnutrition related to morbid obesity No Intervention/Recommendation Comments 1. Continue with current diet as ordered. Assist pt with meals when pt off bipap. Consider providing nutrition supplements if PO intake continue <50%. 2. Monitor PO intake, wt, labs and skin integrity 3. F/U as high risk in 2-3 days, 07/23-07/24 Expected Outcomes/Goals Expected Outcomes/Goals 1. PO intake to meet at least 75% of nutritional needs. 2. Wt stability, skin to remain intact, labs to approach WNL.
[2018-07-22] MEDS ORDERED: Potassium Chloride 20 mEq ER Tab PO ONE (09:00)
[2018-07-22 10:11] LABS: pH 7.44 (7.35-7.45)
--- NOTE | 2018-07-22 11:43 | Diagnostic Imaging Report ---
Renal ultrasound HISTORY: Hematuria The right kidney measures 9.5 x 4.2 x 4.8 cm. No focal lesions. No hydronephrosis. The left kidney measures 9.3 x 4.2 x 4.0 cm. No focal lesions. No hydronephrosis. Urinary bladder cannot be evaluated due to lack of distention. IMPRESSION: 1. Negative exam of the kidneys 2. Inadequate evaluation of the urinary bladder due to lack of distention.
--- NOTE | 2018-07-23 13:55 | Cardiology ---
07/21/[address] Rosalio Herbert. M-MODE ECHOCARDIOGRAM. Mitral valve, anterior leaflet of mitral valve shows normal excursion, EF velocity. Posterior leaflet of the mitral valve shows normal excursion. Left ventricular posterior wall showed normal thickness, excursion. Interventricular septum showed normal thickness, excursion. Ejection fraction is 73%. Left atrium normal. Aortic root shows normal dimension, normal excursion of aortic leaflets. CONCLUSION: Normal M-Mode echo, ejection fraction 73%. 2D ECHO: Long axis view shows normal sized left ventricle with normal wall motion, mitral valve shows normal excursion. Left atrium normal. Aortic root shows normal dimension, normal excursion of aortic leaflets. Short axis view of mitral valve normal. Short axis view of aortic valve normal. Apical four chamber view showed normal sized left ventricle, left atrium, right ventricle, right atrium, tricuspid and mitral valve. Ejection fraction 73%. CONCLUSION: Normal 2D echo, ejection fraction 73%. Doppler study shows mild to moderate mitral regurgitation, moderate aortic regurgitation, moderate tricuspid regurgitation. There is a small atrial septal defect with normal flow from the left atrium to the right atrium very minimal. [facility]# [id number]
== END 2018-07-22 15:20 | DRG 871 ==
LOC: ER 18:14 → ICU 07-21 01:10
PROVIDERS: ADMIT Internal Medicine Infectious Disease; ATTEND Internal Medicine Infectious Disease
PROC: 5A09457 Assistance with Respiratory Ventilation, 24-96 Consecutive Hours, Continuous Positive Airway Pressure (ICD-10-PCS; principal; 2018-07-20)
DX: A41.2 Sepsis due to unspecified staphylococcus (principal); R65.21 Severe sepsis with septic shock; J18.9 Pneumonia, unspecified organism; J96.00 Acute respiratory failure, unspecified whether with hypoxia or hypercapnia; N39.0 Urinary tract infection, site not specified; F72 Severe intellectual disabilities; I51.0 Cardiac septal defect, acquired; I31.3 Pericardial effusion (noninflammatory); Q90.9 Down syndrome, unspecified; F03.90 Unspecified dementia, unspecified severity, without behavioral disturbance, psychotic disturbance, mood disturbance, and anxiety; E03.9 Hypothyroidism, unspecified; R31.9 Hematuria, unspecified; E78.5 Hyperlipidemia, unspecified; N18.3 Chronic kidney disease, stage 3 (moderate); I70.0 Atherosclerosis of aorta; E87.6 Hypokalemia; F20.9 Schizophrenia, unspecified; M81.0 Age-related osteoporosis without current pathological fracture; Z94.7 Corneal transplant status; Z90.49 Acquired absence of other specified parts of digestive tract; Z88.1 Allergy status to other antibiotic agents; Z95.0 Presence of cardiac pacemaker; Z88.2 Allergy status to sulfonamides
CPT/HCPCS: 36415-UA; 36600-90; 71045-TC; 76770-TC; 80048-TC; 80053-TC; 80202-TC; 81001-TC; 82140-TC; 82248-TC; 82550-TC; 82803-TC; 82948-90; 83605; 83735-TC; 83880-TC; 84100-TC; 84443-TC; 84484-TC; 85007-TC; 85025-TC; 85379-TC; 85610-TC; 87070; 87086-90; 93005; 94640; 94660; 96375; 96376; C9113; J1644; J1815; J1956; J2060; J2543; J2920; J3370; J3480; J7613; J7799; P9046; X6452